=== PATIENT | male | born 1980 | race African-American/Black ===

== ENCOUNTER 2017-08-26 14:45 | Emergency (ER) | payer MEDICAID, OTHER, SELFPAY | END 2017-08-26 15:46 | disposition home or self-care (01) | LOC: M ED 14:45 | DX: Z76.0 Encounter for issue of repeat prescription (principal); I10 Essential (primary) hypertension; K21.9 Gastro-esophageal reflux disease without esophagitis; F33.9 Major depressive disorder, recurrent, unspecified; Z79.899 Other long term (current) drug therapy; F17.210 Nicotine dependence, cigarettes, uncomplicated | CPT/HCPCS: 99282 ==